=== PATIENT | female | born 1940 | race Caucasian/White ===

== ENCOUNTER 2024-04-18 13:18 | Inpatient (IN) | payer BC, MEDICARE ==
[~2024-04-18] VITALS: Ht 162.6 cm; Wt 60.3 kg
[~2024-04-18 13:18] MED LIST: ALPR0.255 PO; AMLO-212 PO; ASPI-1169 PO; ATOR80TA PO; BENA40TA8 PO; CLOP75TA15 PO; CYAN250010 SL; EMPA25TA PO; HYDR-4077 PO; METF-442 PO; METO100T14 PO; OMEP40CA21 PO; ONDA4TAB5 PO
[2024-04-18 14:40] LABS: BASOPHILS % (AUTO) 0.5 % (0.0-2.0); EOSINOPHILS # (AUTO) 0.1 K/uL (0.0-0.7); HEMATOCRIT 28 % (33-45); HEMOGLOBIN 9.1 g/dL (11.5-14.8); LYMPHOCYTES # (AUTO) 0.9 K/uL (0.8-4.8); LYMPHOCYTES % (AUTO) 11.9 % (20.0-44.0); MEAN CORPUSCULAR HEMOGLOBIN 32 PG (26.0-33.0); MEAN CORPUSCULAR HGB CONC 33 g/dl (31.0-36.0); MEAN CORPUSCULAR VOLUME 96 fL (82-100); MONOCYTES % (AUTO) 13.7 % (2.0-12.0); NEUTROPHILS # (AUTO) 5.5 K/uL (1.8-8.9); NEUTROPHILS % (AUTO) 72.9 % (43.0-81.0); PLATELET COUNT (AUTO) 226 K/uL (150-450); RED BLOOD CELL COUNT(AUTO) 2.89 MIL/uL (4.0-5.2); RED CELL DISTRIBUTION WIDTH 14.5 % (11.5-15.0); WHITE BLOOD COUNT (AUTO) 7.5 K/uL (4.3-11.0)
[2024-04-18 14:52] LABS: CALCIUM, SERUM 8.7 mg/dL (8.5-10.1); CARBON DIOXIDE 19 mmol/L (21-32); CHLORIDE 103 mmol/L (98-107); CREATININE 3.9 mg/dL (0.6-1.3); GLUCOSE 168 mg/dL (74-106); POTASSIUM 4.8 mmol/L (3.5-5.1); SODIUM SERUM 137 mmol/L (136-145); UREA NITROGEN, BLOOD 61 mg/dL (7-18)
[2024-04-18] MEDS ORDERED: TRAZ-257 PO (15:02)
[2024-04-18] MEDS ORDERED: METO-358 PO (15:02)
[2024-04-18] MEDS ORDERED: AMLO-213 PO (15:02)
[2024-04-18] MEDS ORDERED: FERR325T24 PO (15:02)
[2024-04-18] MEDS ORDERED: PANT40TA2 PO (15:02)
[2024-04-18] MEDS ORDERED: HYDR-4077 PO (15:02)
[2024-04-18] MEDS ORDERED: CHOL200059 PO (15:02)
[2024-04-18] MEDS ORDERED: BENA20TA9 PO (15:02)
[2024-04-18] MEDS ORDERED: EMPA25TA PO (15:02)
[2024-04-18] MEDS ORDERED: CALC-1239 PO (15:02)
[2024-04-18] MEDS ORDERED: ASPI-1169 PO (15:02)
[2024-04-18 15:05] LABS: NT-PRO BNP 10075 pg/mL (0-125)
[2024-04-18 15:26] LABS: LACTIC ACID 5.4 mmol/L (0.4-2.0)
[2024-04-18] MEDS ORDERED: ONDANSETRON HCL/PF 4 MG/2 ML VIAL IVP PRN (16:30)
[2024-04-18] MEDS ORDERED: Z GUARD REMEDY 4 OZ OINT TP PRN (16:30)
[2024-04-18] MEDS: FUROSEMIDE 40 MG/4 ML VIAL IV ONE (16:30)
[2024-04-18] MEDS ORDERED: FUROSEMIDE 40 MG/4 ML VIAL IV ONE (16:30)
[2024-04-18] MEDS: ASPIRIN 81 MG TAB.CHEW PO ONE (16:30)
[2024-04-18] MEDS: PIPERACILLIN /TAZOBACTAM 3.375 G in IV D5W 50 ML IV ONE (16:30)
[2024-04-18] MEDS: VANCOMYCIN 1 GM in IV D5W 250 ML IV ONE (17:00)
[2024-04-18] MEDS ORDERED: FUROSEMIDE 40 MG/4 ML VIAL ONE (17:05)
[2024-04-18] MEDS ORDERED: ASPIRIN 81 MG TAB.CHEW ONE (17:05)
[2024-04-18 18:36] LABS: BILIRUBIN,DIRECT 0.2 mg/dL (0.0-0.2); BILIRUBIN,TOTAL 0.5 mg/dL (0.2-1.0)
[2024-04-18 18:55] LABS: LACTIC ACID REFLEX 1.7 mmol/L (0.4-1.9)
[2024-04-18 20:00] VITALS: BP 134/59; TEMP 98.2; O2SAT 92
[2024-04-18] MEDS: ATORVASTATIN 40 MG TABLET PO SCH (21:35)
[2024-04-19] VITALS (14 sets, daily range): BP systolic 120–150; BP diastolic 55–87; TEMP 98.2–98.9; O2SAT 89–100
[2024-04-19] MEDS: ACETAMINOPHEN 325 MG TABLET PO PRN (04:54)
[2024-04-19] MEDS ORDERED: NITROGLYCERIN 0.4 MG/TAB BOTTLE SL PRN (05:00)
[2024-04-19 06:07] LABS: BASOPHILS % (AUTO) 0.3 % (0.0-2.0); EOSINOPHILS # (AUTO) 0.1 K/uL (0.0-0.7); EOSINOPHILS % (AUTO) 2.1 % (0.0-6.0); HEMATOCRIT 24 % (33-45); HEMOGLOBIN 8.1 g/dL (11.5-14.8); LYMPHOCYTES % (AUTO) 14.4 % (20.0-44.0); MEAN CORPUSCULAR HEMOGLOBIN 32 PG (26.0-33.0); MEAN CORPUSCULAR HGB CONC 34 g/dl (31.0-36.0); MEAN CORPUSCULAR VOLUME 95 fL (82-100); MONOCYTES # (AUTO) 1.1 K/uL (0.1-1.30); MONOCYTES % (AUTO) 16.6 % (2.0-12.0); NEUTROPHILS # (AUTO) 4.4 K/uL (1.8-8.9); NEUTROPHILS % (AUTO) 66.6 % (43.0-81.0); PLATELET COUNT (AUTO) 205 K/uL (150-450); RED BLOOD CELL COUNT(AUTO) 2.52 MIL/uL (4.0-5.2); RED CELL DISTRIBUTION WIDTH 14.1 % (11.5-15.0); WHITE BLOOD COUNT (AUTO) 6.6 K/uL (4.3-11.0)
[2024-04-19 07:10] LABS: CALCIUM, SERUM 7.8 mg/dL (8.5-10.1); CREATININE 3.6 mg/dL (0.6-1.3); PHOSPHORUS 4.9 mg/dL (2.5-4.9); POTASSIUM 4.1 mmol/L (3.5-5.1)
[2024-04-19 07:21] LABS: MAGNESIUM 1.2 mg/dL (1.8-2.4)
[2024-04-19] MEDS: PANTOPRAZOLE 40 MG TABLET.DR PO SCH (09:04)
[2024-04-19] MEDS: AMLODIPINE BESYLATE 10 MG TABLET PO SCH (09:05)
[2024-04-19] MEDS: FUROSEMIDE 40 MG/4 ML VIAL IV SCH (09:05)
[2024-04-19] MEDS: CALCIUM CARB 600MG /VIT D 1 EACH TABLET PO SCH (09:05)
[2024-04-19] MEDS: CHOLECALCIFEROL 1,000 UNIT TABLET (VIT D3) PO SCH (09:05)
[2024-04-19] MEDS: METOPROLOL SUCCINATE 50 MG TAB.SR.24H PO SCH (09:06)
[2024-04-19] MEDS: ASPIRIN 81 MG TAB.CHEW PO SCH (09:06)
[2024-04-19 09:08] LABS: ABG BASE EXCESS -5.1 mmol/L (-2.0-3.0); ABG OXYGEN SATURATION 83.8 % (94.0-98.0); ABG PCO2 28.2 mmHg (32.0-45.0); ABG PH 7.433 (7.350-7.450); ABG PO2 52.5 mmHg (83.0-108.0); ABG TOTAL HEMOGLOBIN 8.3 G/dL (12.0-16.0); COHb 0.1 % (0.5-1.5); MetHb 0.3 % (0.0-1.5); O2Hb 83.5 % (94.0-97.0); SITE, ABG RIGHT BRACHIAL
[2024-04-19] MEDS: EMPAGLIFLOZIN 25 MG TABLET PO SCH (09:49)
[2024-04-19 11:27] LABS: ABG BASE EXCESS -2.9 mmol/L (-2.0-3.0); ABG PCO2 28.5 mmHg (32.0-45.0); ABG PH 7.468 (7.350-7.450); ABG PO2 55.4 mmHg (83.0-108.0); ABG TOTAL HEMOGLOBIN 8.1 G/dL (12.0-16.0); COHb 0.4 % (0.5-1.5); MetHb 0.3 % (0.0-1.5); O2Hb 85.4 % (94.0-97.0); SITE, ABG RIGHT RADIAL
[2024-04-19] MEDS ORDERED: DEXTROSE 50%-WATER 50 ML DISP.SYRIN IV PRN (13:30)
[2024-04-19] MEDS: LEVOFLOXACIN 500 MG /D5W 100ML 100 ML IV ONE (15:02)
[2024-04-19] MEDS: BLOOD SUGAR DIAGNOSTIC 1 EACH STRIP IN SCH (18:07)
[2024-04-19] MEDS: INSULIN REGULAR, HUMAN 100 UNIT/ML 3 ML VIAL SQ PRN (18:07)
[2024-04-19 21:15] LABS: FERRITIN 338 ng/mL (8-388); IRON, SERUM 20 ug/dl (50-175)
[2024-04-19 21:16] LABS: CREATININE, URINE 20.5 MG/DL (30.0-125.0); URINE TOTAL PROTEIN 43.1 mg/dL (0-11.9)
[2024-04-19 21:27] LABS: APPEARANCE,URINE CLEAR (CLEAR); BILIRUBIN,URINE NEGATIVE (NEGATIVE); BLOOD, URINE TRACE-INTA Ery/uL (NEGATIVE); COLOR,URINE YELLOW (YELLOW); KETONES,URINE NEGATIVE (NEGATIVE); LEUKOCYTE ESTERASE ,URINE NEGATIVE (NEGATIVE); NITRITE, URINE NEGATIVE (NEGATIVE); PH,URINE 5.5 (5.0-8.0); PROTEIN,URINE 1+ mg/dl (NEGATIVE); UGLUCOSE 2+ mg/dL (NEGATIVE); UROBILINOGEN,URINE 0.2 EU/dL (0.2)
[2024-04-19 21:52] LABS: ADD URINE CULTURE NO; BACTERIA,URINE None seen /HPF (None Seen); WBC,URINE 0-2 /HPF (0-3)
[2024-04-19 21:53] LABS: MUCUS,URINE FEW /LPF (None Seen)
[2024-04-19] MEDS: SENNOSIDES/DOCUSATE SODIUM 1 TAB TABLET PO PRN (22:05)
[2024-04-20] VITALS (18 sets, daily range): BP systolic 129–163; BP diastolic 45–74; TEMP 97.2–98.1; O2SAT 89–95
[2024-04-20 00:06] LABS: EOSINOPHIL,URINE None Seen
[2024-04-20 07:13] LABS: BASOPHILS % (AUTO) 0.2 % (0.0-2.0); EOSINOPHILS % (AUTO) 0.5 % (0.0-6.0); HEMATOCRIT 26 % (33-45); HEMOGLOBIN 8.6 g/dL (11.5-14.8); LYMPHOCYTES # (AUTO) 0.8 K/uL (0.8-4.8); LYMPHOCYTES % (AUTO) 8.9 % (20.0-44.0); MEAN CORPUSCULAR HEMOGLOBIN 32 PG (26.0-33.0); MEAN CORPUSCULAR HGB CONC 34 g/dl (31.0-36.0); MEAN CORPUSCULAR VOLUME 96 fL (82-100); MONOCYTES # (AUTO) 1.5 K/uL (0.1-1.30); MONOCYTES % (AUTO) 18.3 % (2.0-12.0); NEUTROPHILS # (AUTO) 6.1 K/uL (1.8-8.9); NEUTROPHILS % (AUTO) 72.1 % (43.0-81.0); PLATELET COUNT (AUTO) 220 K/uL (150-450); RED BLOOD CELL COUNT(AUTO) 2.65 MIL/uL (4.0-5.2); RED CELL DISTRIBUTION WIDTH 14.2 % (11.5-15.0); WHITE BLOOD COUNT (AUTO) 8.5 K/uL (4.3-11.0)
[2024-04-20 07:34] LABS: ALBUMIN 2.8 g/dL (3.4-5.0); BILIRUBIN,TOTAL 0.6 mg/dL (0.2-1.0); CALCIUM, SERUM 8.8 mg/dL (8.5-10.1); CREATININE 3.7 mg/dL (0.6-1.3); MAGNESIUM 1.3 mg/dL (1.8-2.4); PHOSPHORUS 5.4 mg/dL (2.5-4.9); POTASSIUM 3.6 mmol/L (3.5-5.1); TOTAL PROTEIN, SERUM 6.5 g/dL (6.4-8.2)
[2024-04-20 10:59] LABS: EOSINOPHILS % (MANUAL) 1 % (0-4); LYMPHOCYTES % (MANUAL) 11 % (16-48); MONOCYTES % (MANUAL) 16 % (0-11.0); NEUTROPHILS % (MANUAL) 72 (42-76)
[2024-04-20] MEDS: hydrOXYzine PAMOATE 25 MG CAPSULE PO ONE (12:20)
[2024-04-20 12:46] LABS: PLATELET ESTIMATE ADEQUATE
[2024-04-21] VITALS (17 sets, daily range): BP systolic 95–155; BP diastolic 70–80; TEMP 97.5–99.3; O2SAT 89–96
[2024-04-21 05:11] LABS: FOLIC ACID 4.6 ng/mL (>3.0)
[2024-04-21 05:57] LABS: BASOPHILS % (AUTO) 0.4 % (0.0-2.0); EOSINOPHILS % (AUTO) 0.3 % (0.0-6.0); HEMATOCRIT 25 % (33-45); HEMOGLOBIN 8.6 g/dL (11.5-14.8); LYMPHOCYTES # (AUTO) 0.6 K/uL (0.8-4.8); MEAN CORPUSCULAR HEMOGLOBIN 32 PG (26.0-33.0); MEAN CORPUSCULAR HGB CONC 34 g/dl (31.0-36.0); MEAN CORPUSCULAR VOLUME 94 fL (82-100); MONOCYTES # (AUTO) 1.4 K/uL (0.1-1.30); MONOCYTES % (AUTO) 18.2 % (2.0-12.0); NEUTROPHILS # (AUTO) 5.8 K/uL (1.8-8.9); NEUTROPHILS % (AUTO) 73.1 % (43.0-81.0); PLATELET COUNT (AUTO) 253 K/uL (150-450); RED BLOOD CELL COUNT(AUTO) 2.71 MIL/uL (4.0-5.2); RED CELL DISTRIBUTION WIDTH 14.2 % (11.5-15.0); WHITE BLOOD COUNT (AUTO) 7.9 K/uL (4.3-11.0)
[2024-04-21 06:12] LABS: D-DIMER 2.74 mg/L(FEU (0.17-0.50); INR 1.06 (0.91-1.10); PARTIAL THROMBOPLASTIN TIME 28.2 SEC (24.3-34.3); PROTHROMBIN TIME 11.2 SECS (9.2-11.1)
[2024-04-21 06:18] LABS: ALBUMIN 2.6 g/dL (3.4-5.0); BILIRUBIN,TOTAL 0.7 mg/dL (0.2-1.0); CREATININE 3.8 mg/dL (0.6-1.3); MAGNESIUM 1.3 mg/dL (1.8-2.4); PHOSPHORUS 5.9 mg/dL (2.5-4.9); POTASSIUM 3.4 mmol/L (3.5-5.1); TOTAL PROTEIN, SERUM 6.6 g/dL (6.4-8.2)
[2024-04-21 06:51] LABS: BAND % (MANUAL) 0 % (0.0-5.0); BASOPHILS % (MANUAL) 0 % (0.0-2.0); EOSINOPHILS % (MANUAL) 0 % (0-4); LYMPHOCYTES % (MANUAL) 10 % (16-48); MONOCYTES % (MANUAL) 13 % (0-11.0); NEUTROPHILS % (MANUAL) 77 (42-76); PLATELET ESTIMATE ADEQUATE
[2024-04-21] MEDS ORDERED: POTASSIUM CHLORIDE 20 MEQ TAB.PRT.SR PO ONE (07:30)
[2024-04-21] MEDS ORDERED: MAGNESIUM OXIDE 400 MG TABLET PO SCH (08:00)
[2024-04-21 08:07] LABS: IMMUNOGLOBULIN A, SERUM 114 mg/dL (64-422); IMMUNOGLOBULIN G, SERUM 934 mg/dL (586-1602); IMMUNOGLOBULIN M, SERUM 74 mg/dL (26-217)
[2024-04-21] MEDS: HYDROCODONE/APAP 5/325MG TABLET PO ONE (09:40)
[2024-04-21] MEDS: METOLAZONE 2.5 MG TABLET PO SCH (10:03)
[2024-04-21] MEDS: FUROSEMIDE 100 MG/10 ML VIAL IV SCH (10:03)
[2024-04-21] MEDS: POTASSIUM CHLORIDE 20 MEQ TAB.PRT.SR PO SCH (10:03)
[2024-04-21 11:07] LABS: FREE KAPPA LT CHAINS SERUM 90.9 mg/L (3.3-19.4); FREE LAMBDA LT CHAIN SERUM 66.1 mg/L (5.7-26.3); KAPPA/LAMBDA RATIO SERUM 1.38 (0.26-1.65)
[2024-04-21 11:07] LABS: FREE KAPPA LT CHAINS SERUM 80.7 mg/L (3.3-19.4); FREE LAMBDA LT CHAIN SERUM 59.9 mg/L (5.7-26.3); KAPPA/LAMBDA RATIO SERUM 1.35 (0.26-1.65)
[2024-04-21] MEDS: GLUCERNA SHAKE 237 ML CAN PO SCH (12:28)
[2024-04-21] MEDS: Magnesium 1GM/D5W 100ML PREMIX 100 ML IV SCH (12:28)
[2024-04-21] MEDS: LEVOFLOXACIN (250MG) 250 MG TABLET PO SCH (14:35)
[2024-04-21] MEDS: hydrOXYzine PAMOATE 25 MG CAPSULE PO ONE (17:25)
[2024-04-22] VITALS (20 sets, daily range): BP systolic 135–152; BP diastolic 64–74; TEMP 97.2–101.3; O2SAT 93–100
[2024-04-22 06:20] LABS: BASOPHILS % (AUTO) 0.4 % (0.0-2.0); EOSINOPHILS % (AUTO) 0.2 % (0.0-6.0); HEMATOCRIT 25 % (33-45); HEMOGLOBIN 8.5 g/dL (11.5-14.8); LYMPHOCYTES # (AUTO) 0.6 K/uL (0.8-4.8); LYMPHOCYTES % (AUTO) 7.6 % (20.0-44.0); MEAN CORPUSCULAR HEMOGLOBIN 32 PG (26.0-33.0); MEAN CORPUSCULAR HGB CONC 34 g/dl (31.0-36.0); MEAN CORPUSCULAR VOLUME 95 fL (82-100); MONOCYTES # (AUTO) 1.4 K/uL (0.1-1.30); NEUTROPHILS # (AUTO) 5.7 K/uL (1.8-8.9); NEUTROPHILS % (AUTO) 73.8 % (43.0-81.0); PLATELET COUNT (AUTO) 245 K/uL (150-450); RED BLOOD CELL COUNT(AUTO) 2.66 MIL/uL (4.0-5.2); RED CELL DISTRIBUTION WIDTH 14.1 % (11.5-15.0); WHITE BLOOD COUNT (AUTO) 7.7 K/uL (4.3-11.0)
[2024-04-22 06:39] LABS: ALBUMIN 2.3 g/dL (3.4-5.0); BILIRUBIN,TOTAL 0.6 mg/dL (0.2-1.0); CALCIUM, SERUM 9.6 mg/dL (8.5-10.1); CREATININE 3.6 mg/dL (0.6-1.3); MAGNESIUM 1.7 mg/dL (1.8-2.4); PHOSPHORUS 5.2 mg/dL (2.5-4.9); POTASSIUM 3.9 mmol/L (3.5-5.1); TOTAL PROTEIN, SERUM 6.4 g/dL (6.4-8.2)
[2024-04-22 10:46] LABS: LYMPHOCYTES % (MANUAL) 9 % (16-48); MONOCYTES % (MANUAL) 5 % (0-11.0); NEUTROPHILS % (MANUAL) 86 (42-76); PLATELET ESTIMATE ADEQUATE
[2024-04-22 10:48] LABS: ANISOCYTOSIS 1+; OVALOCYTES 1+
[2024-04-22] MEDS: FUROSEMIDE 100 MG/10 ML VIAL IV SCH (11:51)
[2024-04-22] MEDS: VANCOMYCIN 1 GM in IV D5W 250ml IV SCH (18:35)
[2024-04-22] MEDS: CEFEPIME 1 GM in IV D5W 50 ML IV SCH (20:16)
[2024-04-22] MEDS: SENNOSIDES/DOCUSATE SODIUM 1 TAB TABLET PO SCH (21:11)
[2024-04-23] VITALS (18 sets, daily range): BP systolic 114–138; BP diastolic 57–78; TEMP 97.7–98.6; O2SAT 94–100
[2024-04-23 02:06] LABS: PTH, INTACT 72 pg/mL (15-65)
[2024-04-23 06:56] LABS: INR 1.03 (0.91-1.10); PROTHROMBIN TIME 10.9 SECS (9.2-11.1)
[2024-04-23 06:57] LABS: BASOPHILS % (AUTO) 0.3 % (0.0-2.0); EOSINOPHILS # (AUTO) 0.1 K/uL (0.0-0.7); EOSINOPHILS % (AUTO) 1.6 % (0.0-6.0); HEMATOCRIT 23 % (33-45); HEMOGLOBIN 7.9 g/dL (11.5-14.8); LYMPHOCYTES # (AUTO) 0.6 K/uL (0.8-4.8); LYMPHOCYTES % (AUTO) 9.3 % (20.0-44.0); MEAN CORPUSCULAR HEMOGLOBIN 32 PG (26.0-33.0); MEAN CORPUSCULAR HGB CONC 34 g/dl (31.0-36.0); MEAN CORPUSCULAR VOLUME 95 fL (82-100); MONOCYTES # (AUTO) 1.1 K/uL (0.1-1.30); NEUTROPHILS # (AUTO) 4.6 K/uL (1.8-8.9); NEUTROPHILS % (AUTO) 71.8 % (43.0-81.0); PLATELET COUNT (AUTO) 269 K/uL (150-450); RED BLOOD CELL COUNT(AUTO) 2.44 MIL/uL (4.0-5.2); RED CELL DISTRIBUTION WIDTH 14.2 % (11.5-15.0); WHITE BLOOD COUNT (AUTO) 6.4 K/uL (4.3-11.0)
[2024-04-23 07:06] LABS: BILIRUBIN,TOTAL 0.5 mg/dL (0.2-1.0); CALCIUM, SERUM 9.3 mg/dL (8.5-10.1); CREATININE 3.7 mg/dL (0.6-1.3); MAGNESIUM 1.6 mg/dL (1.8-2.4); POTASSIUM 3.9 mmol/L (3.5-5.1); TOTAL PROTEIN, SERUM 6.4 g/dL (6.4-8.2)
[2024-04-23] MEDS: POLYETHYLENE GLYCOL 3350 17 GM POWD.PACK PO SCH (09:10)
[2024-04-23] MEDS: Magnesium 1GM/D5W 100ML PREMIX 100 ML IV SCH (12:23)
[2024-04-23 13:18] LABS: EOSINOPHILS % (MANUAL) 1 % (0-4); LYMPHOCYTES % (MANUAL) 6 % (16-48); MONOCYTES % (MANUAL) 13 % (0-11.0); NEUTROPHILS % (MANUAL) 80 (42-76); PLATELET ESTIMATE ADEQUATE
[2024-04-24] VITALS (21 sets, daily range): BP systolic 104–130; BP diastolic 50–74; TEMP 97.2–98.4; O2SAT 91–96
[2024-04-24 04:10] LABS: FREE KAPPA LT CHAINS SERUM 90.4 mg/L (3.3-19.4); FREE LAMBDA LT CHAIN SERUM 70.4 mg/L (5.7-26.3); KAPPA/LAMBDA RATIO SERUM 1.28 (0.26-1.65)
[2024-04-24 06:27] LABS: CREATININE 3.7 mg/dL (0.6-1.3); MAGNESIUM 2.4 mg/dL (1.8-2.4); PHOSPHORUS 4.9 mg/dL (2.5-4.9); POTASSIUM 3.7 mmol/L (3.5-5.1)
[2024-04-24 07:07] LABS: *SPE A/G RATIO 0.8 (0.7-1.7); *SPE ALBUMIN 2.5 g/dL (2.9-4.4); *SPE ALPHA-1-GLOBULIN 0.3 g/dL (0.0-0.4); *SPE ALPHA-2-GLOBULIN 0.9 g/dL (0.4-1.0); *SPE BETA GLOBULIN 0.8 g/dL (0.7-1.3); *SPE M-SPIKE 0.6 g/dL (Not Observed); *SPE PROTEIN TOTAL 5.5 g/dL (6.0-8.5)
[2024-04-24 07:53] LABS: BASOPHILS % (AUTO) 0.3 % (0.0-2.0); EOSINOPHILS # (AUTO) 0.1 K/uL (0.0-0.7); EOSINOPHILS % (AUTO) 2.7 % (0.0-6.0); HEMATOCRIT 21 % (33-45); HEMOGLOBIN 7.2 g/dL (11.5-14.8); LYMPHOCYTES # (AUTO) 0.7 K/uL (0.8-4.8); LYMPHOCYTES % (AUTO) 11.9 % (20.0-44.0); MEAN CORPUSCULAR HEMOGLOBIN 32 PG (26.0-33.0); MEAN CORPUSCULAR HGB CONC 34 g/dl (31.0-36.0); MEAN CORPUSCULAR VOLUME 95 fL (82-100); MONOCYTES # (AUTO) 0.8 K/uL (0.1-1.30); MONOCYTES % (AUTO) 14.7 % (2.0-12.0); NEUTROPHILS # (AUTO) 3.9 K/uL (1.8-8.9); NEUTROPHILS % (AUTO) 70.4 % (43.0-81.0); PLATELET COUNT (AUTO) 272 K/uL (150-450); RED BLOOD CELL COUNT(AUTO) 2.23 MIL/uL (4.0-5.2); RED CELL DISTRIBUTION WIDTH 14.4 % (11.5-15.0); WHITE BLOOD COUNT (AUTO) 5.5 K/uL (4.3-11.0)
[2024-04-24] MEDS: BUMETANIDE INJ 4 MG in IV D5W 24 ML IV ONE (08:49)
[2024-04-24] MEDS ORDERED: ACETAMINOPHEN 325 MG TABLET PO ONE (12:30)
[2024-04-24] MEDS: QUETIAPINE FUMARATE 25 MG TABLET PO SCH (13:08)
[2024-04-24 16:48] LABS: HEMOGLOBIN 6.5 g/dL (11.5-14.8)
[2024-04-24] MEDS: diphenhydrAMINE HCL 50 MG/ML VIAL IV ONE ×2 (19:35→19:40)
[2024-04-24] MEDS: ACETAMINOPHEN 325 MG TABLET PO ONE (19:38)
[2024-04-25] VITALS (18 sets, daily range): BP systolic 106–133; BP diastolic 55–99; TEMP 97.5–99.3; O2SAT 90–98
[2024-04-25 00:35] LABS: BASOPHILS % (AUTO) 0.6 % (0.0-2.0); EOSINOPHILS # (AUTO) 0.2 K/uL (0.0-0.7); EOSINOPHILS % (AUTO) 3.5 % (0.0-6.0); HEMATOCRIT 28 % (33-45); HEMOGLOBIN 9.5 g/dL (11.5-14.8); LYMPHOCYTES # (AUTO) 0.7 K/uL (0.8-4.8); LYMPHOCYTES % (AUTO) 11.7 % (20.0-44.0); MEAN CORPUSCULAR HEMOGLOBIN 31 PG (26.0-33.0); MEAN CORPUSCULAR HGB CONC 34 g/dl (31.0-36.0); MEAN CORPUSCULAR VOLUME 91 fL (82-100); MONOCYTES % (AUTO) 17.8 % (2.0-12.0); NEUTROPHILS # (AUTO) 3.7 K/uL (1.8-8.9); NEUTROPHILS % (AUTO) 66.4 % (43.0-81.0); PLATELET COUNT (AUTO) 252 K/uL (150-450); RED BLOOD CELL COUNT(AUTO) 3.05 MIL/uL (4.0-5.2); RED CELL DISTRIBUTION WIDTH 16.1 % (11.5-15.0); WHITE BLOOD COUNT (AUTO) 5.6 K/uL (4.3-11.0)
[2024-04-25 06:58] LABS: BASOPHILS % (AUTO) 0.4 % (0.0-2.0); EOSINOPHILS # (AUTO) 0.2 K/uL (0.0-0.7); EOSINOPHILS % (AUTO) 3.5 % (0.0-6.0); HEMATOCRIT 30 % (33-45); HEMOGLOBIN 10.1 g/dL (11.5-14.8); INR 0.99 (0.91-1.10); LYMPHOCYTES # (AUTO) 0.7 K/uL (0.8-4.8); LYMPHOCYTES % (AUTO) 10.4 % (20.0-44.0); MEAN CORPUSCULAR HEMOGLOBIN 31 PG (26.0-33.0); MEAN CORPUSCULAR HGB CONC 34 g/dl (31.0-36.0); MEAN CORPUSCULAR VOLUME 91 fL (82-100); MONOCYTES # (AUTO) 1.2 K/uL (0.1-1.30); MONOCYTES % (AUTO) 16.7 % (2.0-12.0); NEUTROPHILS # (AUTO) 4.8 K/uL (1.8-8.9); PARTIAL THROMBOPLASTIN TIME 26.2 SEC (24.3-34.3); PLATELET COUNT (AUTO) 312 K/uL (150-450); PROTHROMBIN TIME 10.5 SECS (9.2-11.1); RED CELL DISTRIBUTION WIDTH 16.2 % (11.5-15.0); WHITE BLOOD COUNT (AUTO) 6.9 K/uL (4.3-11.0)
[2024-04-25 07:26] LABS: CALCIUM, SERUM 9.4 mg/dL (8.5-10.1); CREATININE 4.1 mg/dL (0.6-1.3); MAGNESIUM 2.5 mg/dL (1.8-2.4); PHOSPHORUS 4.9 mg/dL (2.5-4.9); POTASSIUM 3.7 mmol/L (3.5-5.1)
[2024-04-25 07:40] LABS: D-DIMER 5.33 mg/L(FEU (0.17-0.50)
[2024-04-25 10:59] LABS: ALBUMIN 2.1 g/dL (3.4-5.0); BILIRUBIN,DIRECT 0.2 mg/dL (0.0-0.2); BILIRUBIN,TOTAL 0.5 mg/dL (0.2-1.0); TOTAL PROTEIN, SERUM 6.6 g/dL (6.4-8.2)
[2024-04-25 12:46] LABS: EOSINOPHILS % (MANUAL) 4 % (0-4); LYMPHOCYTES % (MANUAL) 12 % (16-48); MONOCYTES % (MANUAL) 12 % (0-11.0); NEUTROPHILS % (MANUAL) 72 (42-76)
[2024-04-25 15:09] LABS: *SPE A/G RATIO 0.9 (0.7-1.7); *SPE ALBUMIN 2.8 g/dL (2.9-4.4); *SPE ALPHA-1-GLOBULIN 0.4 g/dL (0.0-0.4); *SPE BETA GLOBULIN 0.7 g/dL (0.7-1.3); *SPE M-SPIKE 0.6 g/dL (Not Observed); *SPE PROTEIN TOTAL 5.8 g/dL (6.0-8.5); *SPEGAMMA GLOBULIN 0.9 g/dL (0.4-1.8)
[2024-04-25] MEDS: SENNOSIDES/DOCUSATE SODIUM 1 TAB TABLET PO SCH (21:23)
[2024-04-26] VITALS (18 sets, daily range): BP systolic 125–142; BP diastolic 62–72; TEMP 98.2–98.8; O2SAT 92–98
[2024-04-26 07:19] LABS: D-DIMER 4.38 mg/L(FEU (0.17-0.50); INR 1.03 (0.91-1.10); PARTIAL THROMBOPLASTIN TIME 27.1 SEC (24.3-34.3); PROTHROMBIN TIME 10.9 SECS (9.2-11.1)
[2024-04-26 07:28] LABS: BILIRUBIN,DIRECT 0.1 mg/dL (0.0-0.2); BILIRUBIN,TOTAL 0.4 mg/dL (0.2-1.0); TOTAL PROTEIN, SERUM 6.6 g/dL (6.4-8.2)
[2024-04-26 07:52] LABS: BASOPHILS # (AUTO) 0.1 K/uL (0.0-0.2); EOSINOPHILS # (AUTO) 0.3 K/uL (0.0-0.7); EOSINOPHILS % (AUTO) 3.2 % (0.0-6.0); HEMATOCRIT 31 % (33-45); HEMOGLOBIN 10.5 g/dL (11.5-14.8); LYMPHOCYTES % (AUTO) 11.8 % (20.0-44.0); MEAN CORPUSCULAR HEMOGLOBIN 32 PG (26.0-33.0); MEAN CORPUSCULAR HGB CONC 34 g/dl (31.0-36.0); MEAN CORPUSCULAR VOLUME 92 fL (82-100); MONOCYTES # (AUTO) 1.5 K/uL (0.1-1.30); MONOCYTES % (AUTO) 16.9 % (2.0-12.0); NEUTROPHILS # (AUTO) 5.8 K/uL (1.8-8.9); NEUTROPHILS % (AUTO) 67.1 % (43.0-81.0); PLATELET COUNT (AUTO) 311 K/uL (150-450); RED BLOOD CELL COUNT(AUTO) 3.33 MIL/uL (4.0-5.2); RED CELL DISTRIBUTION WIDTH 15.9 % (11.5-15.0); WHITE BLOOD COUNT (AUTO) 8.6 K/uL (4.3-11.0)
[2024-04-26] MEDS: NEPRO VAN 237 ML CAN PO PRN (08:32)
[2024-04-26 09:04] LABS: CREATININE 4.4 mg/dL (0.6-1.3); POTASSIUM 3.8 mmol/L (3.5-5.1)
[2024-04-27] VITALS (15 sets, daily range): BP systolic 106–156; BP diastolic 70–76; TEMP 96.8–98.1; O2SAT 81–98
[2024-04-27 06:34] LABS: BASOPHILS # (AUTO) 0.1 K/uL (0.0-0.2); BASOPHILS % (AUTO) 0.8 % (0.0-2.0); EOSINOPHILS % (AUTO) 0.5 % (0.0-6.0); HEMATOCRIT 32 % (33-45); LYMPHOCYTES # (AUTO) 0.9 K/uL (0.8-4.8); LYMPHOCYTES % (AUTO) 9.9 % (20.0-44.0); MEAN CORPUSCULAR HEMOGLOBIN 32 PG (26.0-33.0); MEAN CORPUSCULAR HGB CONC 35 g/dl (31.0-36.0); MEAN CORPUSCULAR VOLUME 92 fL (82-100); MONOCYTES # (AUTO) 1.6 K/uL (0.1-1.30); MONOCYTES % (AUTO) 17.3 % (2.0-12.0); NEUTROPHILS # (AUTO) 6.5 K/uL (1.8-8.9); NEUTROPHILS % (AUTO) 71.5 % (43.0-81.0); PLATELET COUNT (AUTO) 348 K/uL (150-450); RED BLOOD CELL COUNT(AUTO) 3.48 MIL/uL (4.0-5.2); WHITE BLOOD COUNT (AUTO) 9.1 K/uL (4.3-11.0)
[2024-04-27 06:53] LABS: CALCIUM, SERUM 9.4 mg/dL (8.5-10.1); CREATININE 4.2 mg/dL (0.6-1.3)
[2024-04-27 06:54] LABS: INR 1.01 (0.91-1.10); PARTIAL THROMBOPLASTIN TIME 27.2 SEC (24.3-34.3); PROTHROMBIN TIME 10.7 SECS (9.2-11.1)
[2024-04-27 06:57] LABS: D-DIMER 5.14 mg/L(FEU (0.17-0.50)
[2024-04-27 07:03] LABS: BILIRUBIN,DIRECT 0.1 mg/dL (0.0-0.2); BILIRUBIN,TOTAL 0.5 mg/dL (0.2-1.0); TOTAL PROTEIN, SERUM 7.1 g/dL (6.4-8.2)
[2024-04-27] MEDS ORDERED: MORPHINE SULFATE/PF 30 MG in IV NS 0.9% 27 ML, PCA TOTAL VOLUME 1 BAG IV PRN (11:30)
[2024-04-27] MEDS ORDERED: LORAZEPAM INJ 2 MG/ML VIAL IV PRN (19:30)
[2024-04-28] VITALS (16 sets, daily range): BP systolic 100–130; BP diastolic 47–70; TEMP 97–99; O2SAT 87–98
[2024-04-28] MEDS: KEY,NONCONTROL,TO KEEP IN PYXI 1 EA MC ONE ×2 (00:54→19:00)
[2024-04-28 08:54] LABS: BASOPHILS % (AUTO) 0.5 % (0.0-2.0); EOSINOPHILS % (AUTO) 0.5 % (0.0-6.0); HEMATOCRIT 31 % (33-45); HEMOGLOBIN 10.1 g/dL (11.5-14.8); LYMPHOCYTES # (AUTO) 0.5 K/uL (0.8-4.8); LYMPHOCYTES % (AUTO) 5.7 % (20.0-44.0); MEAN CORPUSCULAR HEMOGLOBIN 31 PG (26.0-33.0); MEAN CORPUSCULAR HGB CONC 33 g/dl (31.0-36.0); MEAN CORPUSCULAR VOLUME 94 fL (82-100); MONOCYTES % (AUTO) 21.6 % (2.0-12.0); NEUTROPHILS # (AUTO) 6.7 K/uL (1.8-8.9); NEUTROPHILS % (AUTO) 71.7 % (43.0-81.0); PLATELET COUNT (AUTO) 369 K/uL (150-450); RED BLOOD CELL COUNT(AUTO) 3.25 MIL/uL (4.0-5.2); RED CELL DISTRIBUTION WIDTH 16.1 % (11.5-15.0); WHITE BLOOD COUNT (AUTO) 9.3 K/uL (4.3-11.0)
[2024-04-28 09:21] LABS: CALCIUM, SERUM 9.1 mg/dL (8.5-10.1); CREATININE 5.7 mg/dL (0.6-1.3); POTASSIUM 5.5 mmol/L (3.5-5.1)
[2024-04-28 09:40] LABS: ALBUMIN 1.9 g/dL (3.4-5.0); BILIRUBIN,DIRECT 0.1 mg/dL (0.0-0.2); BILIRUBIN,TOTAL 0.3 mg/dL (0.2-1.0); TOTAL PROTEIN, SERUM 6.7 g/dL (6.4-8.2)
[2024-04-28 10:33] LABS: EOSINOPHILS % (MANUAL) 1 % (0-4); LYMPHOCYTES % (MANUAL) 7 % (16-48); MONOCYTES % (MANUAL) 14 % (0-11.0); NEUTROPHILS % (MANUAL) 78 (42-76)
[2024-04-28 10:34] LABS: ANISOCYTOSIS 1+; PLATELET ESTIMATE ADEQUATE
[2024-04-29] VITALS (8 sets, daily range): BP systolic 93–100; BP diastolic 46–48; TEMP 97.5–99; O2SAT 83–90
[2024-04-29] MEDS: KEY,NONCONTROL,TO KEEP IN PYXI 1 EA MC ONE (00:18)
[2024-04-29] MEDS ORDERED: KEY,NONCONTROL,TO KEEP IN PYXI 1 EA MC ONE ×2 (10:35→11:49)
== END 2024-04-29 11:10 ==
LOC: ER 13:30 → TELE1 17:05 → TELE-TD 04-19 12:12 → MEDSG1 04-28 07:54
PROVIDERS: ADMIT Nurse Practitioner Family; ATTEND Internal Medicine
PROC: 30233N1 Transfusion of Nonautologous Red Blood Cells into Peripheral Vein, Percutaneous Approach (ICD-10-PCS; principal; 2024-04-24)
DX: I13.0 Hypertensive heart and chronic kidney disease with heart failure and stage 1 through stage 4 chronic kidney disease, or unspecified chronic kidney disease (principal); I50.31 Acute diastolic (congestive) heart failure; I21.A1 Myocardial infarction type 2; J96.01 Acute respiratory failure with hypoxia; N17.9 Acute kidney failure, unspecified; C90.00 Multiple myeloma not having achieved remission; E87.20 Acidosis, unspecified; J90 Pleural effusion, not elsewhere classified; N18.9 Chronic kidney disease, unspecified; Z66 Do not resuscitate; Z51.5 Encounter for palliative care; Z20.822 Contact with and (suspected) exposure to COVID-19; M89.8X9 Other specified disorders of bone, unspecified site; E78.5 Hyperlipidemia, unspecified; Z91.158 Patient's noncompliance with renal dialysis for other reason; Z86.73 Personal history of transient ischemic attack (TIA), and cerebral infarction without residual deficits; K21.9 Gastro-esophageal reflux disease without esophagitis; H26.9 Unspecified cataract; Z91.013 Allergy to seafood; Z79.84 Long term (current) use of oral hypoglycemic drugs; Z79.82 Long term (current) use of aspirin; Z79.899 Other long term (current) drug therapy; E11.22 Type 2 diabetes mellitus with diabetic chronic kidney disease; D64.9 Anemia, unspecified
CPT/HCPCS: 36415; 36600; 71045-TC; 71250-TC; 76604-TC; 76770-TC; 80048-TC; 80053-TC; 80061-TC; 80076-TC; 80202-TC; 81001; 82247-TC; 82248-TC; 82550-TC; 82570-TC; 82607-TC; 82728-TC; 82784; 82803-TC; 82962-TC; 83540-TC; 83605-TC; 83735-TC; 83880; 83970; 84100-TC; 84155; 84165; 84300-TC; 84443-TC; 84484-TC; 85025-TC; 85027-TC; 85378-TC; 85396; 85610-TC; 86334; 86803; 86850-TC; 87040-TC; 87081-TC; 87899; 92526; 92611-TC; 93307-TC; 93970-TC; 94760-TC; 94761-TC; 94762-TC; 94799-TC; 97110-TC; 97112-TC; 97116-TC; 97530-TC; 97535-TC; 99082-TC; A4623; G0378; J0692; J1200; J1815; J1940; J1956; J2274; J2543; J3370; J3475; J3490; J7030; J7050; J7060; P9016; Q0177